=== PATIENT | male | born 1965 | race Caucasian/White ===

== ENCOUNTER 2020-12-20 13:45 | Emergency (ER) | payer OTHER ==
[~2020-12-20 13:45] MED LIST: ALBUTEROL2.5 MG/3 M INH; AMOXICILLIN875 MG PO; AUGMENTIN 875-1 EACH PO; BACTROBAN OINT22 GM EXT; HABITROL 21 MG P1 EA TOP; IPRAT-ALBUT 0.5-3 ML INH; LEVAQUIN750 MG PO; MEDROL DOSEPAK 24 MG PO; MIRALAX 119 GR119 GM GT; NEBULIZER UNIT; OMNICEF 300 MG300 MG PO; ONDANSETRON ODT4 MG PO; PREDNISONE20 MG PO; TESSALON PERLE100 MG PO; VENTOLIN HFA 66.7 GM INH; VIBRAMYCIN100 MG PO; ZITHROMAX250 MG PO
[2020-12-20 16:23] LABS: HEMOGLOBIN 16.4 gm/dl (14.0-17.5); RED BLOOD COUNT 5.15 M/UL (4.20-5.50); WHITE BLOOD COUNT 9.9 K/UL (4.5-11.0)
[2020-12-20 16:49] LABS: BUN/CREATININE RATIO 14 (0-10)
[2020-12-20] MEDS ORDERED: OMNICEF 300 MG300 MG PO (18:36)
[2020-12-20] MEDS ORDERED: AZITHROMYCIN250 MG PO (18:36)
[2020-12-20] MEDS ORDERED: MEDROL DOSEPAK 24 MG PO (18:36)
[2020-12-20] MEDS ORDERED: IPRAT-ALBUT 0.5-3 ML INH (18:36)
== END 2020-12-20 19:10 | disposition home or self-care (01) ==
LOC: ER1 13:45
PROVIDERS: Physician Assistant Medical
DX: J44.1 Chronic obstructive pulmonary disease with (acute) exacerbation (principal); J20.9 Acute bronchitis, unspecified; J44.0 Chronic obstructive pulmonary disease with (acute) lower respiratory infection; Z85.118 Personal history of other malignant neoplasm of bronchus and lung; Z20.822 Contact with and (suspected) exposure to COVID-19
CPT/HCPCS: 0240U; 36600; 71045; 80053; 82550; 82553; 82803; 83605; 83874; 83880; 84484; 85025; 87040; 93005; 94640; 94664; 96365; 96375; 99285; J0696; J2930

== ENCOUNTER 2020-12-28 05:25 | Emergency (ER) | payer OTHER ==
[~2020-12-28 05:25] MED LIST changes: +AZITHROMYCIN250 MG PO
[2020-12-28 06:48] LABS: HEMOGLOBIN 15.8 gm/dl (14.0-17.5); RED BLOOD COUNT 5.15 M/UL (4.20-5.50); WHITE BLOOD COUNT 12.6 K/UL (4.5-11.0)
[2020-12-28 07:28] LABS: BUN/CREATININE RATIO 13 (0-10)
[2020-12-28] MEDS ORDERED: ZITHROMAX250 MG PO (08:55)
[2020-12-28] MEDS ORDERED: MEDROL4 MG PO (08:55)
[2020-12-28] MEDS ORDERED: VENTOLIN HFA 66.7 GM INH (09:06)
== END 2020-12-28 10:26 | disposition home or self-care (01) ==
LOC: ER1 05:25
PROVIDERS: Emergency Medicine
DX: J45.901 Unspecified asthma with (acute) exacerbation (principal); Z85.118 Personal history of other malignant neoplasm of bronchus and lung; Z20.822 Contact with and (suspected) exposure to COVID-19
CPT/HCPCS: 0240U; 71045; 80053; 82550; 82553; 83605; 84484; 85025; 85379; 85610; 85730; 87040; 93005; 94640; 94664; 96374; 99285; J2930

== ENCOUNTER 2020-12-31 04:21 | Inpatient (IN) | payer OTHER ==
[~2020-12-31] VITALS: Ht 170.2 cm; Wt 74.8 kg
[~2020-12-31 04:21] MED LIST changes: +MEDROL4 MG PO
[2020-12-31 04:45] LABS: HEMOGLOBIN 16.4 gm/dl (14.0-17.5); RED BLOOD COUNT 5.09 M/UL (4.20-5.50)
[2020-12-31 04:53] LABS: WHITE BLOOD COUNT 20.5 K/UL (4.5-11.0)
[2020-12-31 05:06] LABS: BUN/CREATININE RATIO 20 (0-10)
[2020-12-31] MEDS ORDERED: IPRAT-ALBUT 0.5-3 ML INH (09:18)
[2020-12-31] MEDS ORDERED: MEDROL DOSEPAK 24 MG PO (09:19)
[2020-12-31] MEDS ORDERED: SYMBICORT 16010.2 GM INH (09:19)
[2020-12-31] MEDS ORDERED: AZITHROMYCIN250 MG PO (09:19)
[2020-12-31] MEDS ORDERED: VITAMIN C500 M6 PO (09:21)
--- NOTE | 2021-01-01 10:23 | NUR ---
PATIENTS ROOM SAT IS 88% WITHOUT O2 NASAL CANNULA ON.
[2021-01-02 02:20] LABS: HEMOGLOBIN 15.3 gm/dl (14.0-17.5); RED BLOOD COUNT 4.75 M/UL (4.20-5.50); WHITE BLOOD COUNT 29.4 K/UL (4.5-11.0)
[2021-01-02 02:47] LABS: BUN/CREATININE RATIO 38 (0-10)
[2021-01-02] MEDS ORDERED: IPRAT-ALBUT 0.5-3 ML INH (13:49)
[2021-01-02] MEDS ORDERED: THERAGRAN M TAB1 EA PO (13:49)
[2021-01-02] MEDS ORDERED: VITAMIN D350 MC3 PO (13:49)
[2021-01-02] MEDS ORDERED: SYMBICORT 16010.2 GM INH (13:49)
[2021-01-02] MEDS ORDERED: TOPROL XL25 MG PO (13:49)
[2021-01-02] MEDS ORDERED: KLONOPIN0.5 MG PO (13:49)
[2021-01-02] MEDS ORDERED: AMOX TR-K CLV1 EAC4 PO (13:49)
== END 2021-01-02 19:30 | disposition home health service (06) | DRG 871 ==
LOC: ER1 04:21 → CDU 06:22 → PROG CARE 06:22 → CDU 06:22 → PROG CARE 11:00
PROVIDERS: Emergency Medicine; Internal Medicine Infectious Disease; ADMIT Internal Medicine
DX: A41.9 Sepsis, unspecified organism (principal); J18.9 Pneumonia, unspecified organism; E43 Unspecified severe protein-calorie malnutrition; J96.21 Acute and chronic respiratory failure with hypoxia; J44.0 Chronic obstructive pulmonary disease with (acute) lower respiratory infection; C34.92 Malignant neoplasm of unspecified part of left bronchus or lung; C77.9 Secondary and unspecified malignant neoplasm of lymph node, unspecified; J44.1 Chronic obstructive pulmonary disease with (acute) exacerbation; Z20.822 Contact with and (suspected) exposure to COVID-19; F17.210 Nicotine dependence, cigarettes, uncomplicated; R00.0 Tachycardia, unspecified; F41.1 Generalized anxiety disorder; Z82.49 Family history of ischemic heart disease and other diseases of the circulatory system; Z90.2 Acquired absence of lung [part of]; Z68.25 Body mass index [BMI] 25.0-25.9, adult; Z82.5 Family history of asthma and other chronic lower respiratory diseases; Z80.0 Family history of malignant neoplasm of digestive organs; Z79.899 Other long term (current) drug therapy
CPT/HCPCS: 0240U; 36415; 36600; 71045; 80053; 82550; 82553; 82803; 83605; 83690; 83735; 83874; 84100; 84484; 85025; 85610; 85730; 86140; 93005; 94640; 94664; 94760; 96365; 96372; 96375; 96376; 97161; 99285; C9113; J0696; J1650; J1956; J2920; J2930; Q9967

== ENCOUNTER 2021-01-11 12:20 | Inpatient (IN) | payer OTHER ==
[~2021-01-11] VITALS: Ht 170.2 cm; Wt 74.8 kg
[~2021-01-11 12:20] MED LIST changes: +AMOX TR-K CLV1 EAC4 PO; +KLONOPIN0.5 MG PO; +SYMBICORT 16010.2 GM INH; +THERAGRAN M TAB1 EA PO; +TOPROL XL25 MG PO; +VITAMIN C500 M6 PO; +VITAMIN D350 MC3 PO
[2021-01-11 13:26] LABS: HEMOGLOBIN 16.2 gm/dl (14.0-17.5); RED BLOOD COUNT 5.05 M/UL (4.20-5.50); WHITE BLOOD COUNT 20.1 K/UL (4.5-11.0)
[2021-01-11 13:47] LABS: BUN/CREATININE RATIO 16 (0-10)
[2021-01-12 06:21] LABS: HEMOGLOBIN 16.2 gm/dl (14.0-17.5); RED BLOOD COUNT 5.08 M/UL (4.20-5.50); WHITE BLOOD COUNT 20.3 K/UL (4.5-11.0)
[2021-01-12 06:38] LABS: BUN/CREATININE RATIO 22 (0-10)
[2021-01-13 05:54] LABS: HEMOGLOBIN 14.7 gm/dl (14.0-17.5); RED BLOOD COUNT 4.62 M/UL (4.20-5.50)
[2021-01-13 06:24] LABS: WHITE BLOOD COUNT 33.3 K/UL (4.5-11.0)
[2021-01-13 06:25] LABS: BUN/CREATININE RATIO 27 (0-10)
--- NOTE | 2021-01-13 06:31 | NUR ---
NOTIFIED DR GLOVER OF CRITICAL LAB. WBC COUNT 33.3, RECIEVED NO NEW ORDERS. WILL CONTINUE TO MONITOR.
--- NOTE | 2021-01-14 17:40 | NUR ---
01/14/21 1630 REFUSES TO WEAR SCUD'S
[2021-01-15 03:04] LABS: HEMOGLOBIN 14.3 gm/dl (14.0-17.5); RED BLOOD COUNT 4.47 M/UL (4.20-5.50)
[2021-01-15 03:08] LABS: WHITE BLOOD COUNT 16.2 K/UL (4.5-11.0)
[2021-01-15 03:42] LABS: BUN/CREATININE RATIO 34 (0-10)
--- NOTE | 2021-01-15 18:41 | NUR ---
BEDSIDE SHIFT REPORT DONE AT THIS TIME. PATIENT IN STABLE CONDITION.
[2021-01-16 04:21] LABS: HEMOGLOBIN 14.8 gm/dl (14.0-17.5); RED BLOOD COUNT 4.68 M/UL (4.20-5.50); WHITE BLOOD COUNT 18.3 K/UL (4.5-11.0)
[2021-01-16 04:43] LABS: BUN/CREATININE RATIO 34 (0-10)
[2021-01-16] MEDS ORDERED: MEDROL DOSEPAK 24 MG PO (11:13)
[2021-01-16] MEDS ORDERED: SPIRIVA HANDIH18 MCG INH (11:13)
[2021-01-16] MEDS ORDERED: LEVOFLOXACIN750 MG PO (11:18)
--- NOTE | 2021-01-16 18:24 | NUR ---
THIS NURSE ASSISTED TRANSPORT TEAM WITH PATIENT TRANSPORT UPON DISCHARGE. UPON TRANSFER FROM HOSPITAL OXYGEN TANK TO PATIENT'S HOME SUPPLY, PATIENT PANICKED SCREAMING "I AM NOT GETTING AIR!" PATIENT ALSO BEGAN TO CURSE, AND BECOME VERY TALKATIVE AND PANICKING. PATIENT HAD PORTABLE O2 SAT MONITOR ON HIS FINGER, IN WHICH OXYGEN SATURATIONS DID DROP DURING THIS EPISODE. REASSURED PATIENT, CALMED PATIENT, AND ENCOURAGED TO TAKE DEEP EVEN BREATHS. WITHIN 30 SECONDS, PATIENT'S OXYGEN SATURATION RETURNED TO NORMAL RANGE, 92-93% ON 4LPM/NC. DISCUSSED WITH PATIENT IF HE WOULD LIKE FOR PHYSICIAN TO BE CALLED OR IF HE WOULD LIKE TO COME BACK IN TO THE HOSPITAL FOR REASSESSMENT. PATIENT REFUSED. NOTIFIED DR. HERNANDEZ.
== END 2021-01-16 18:13 | disposition home or self-care (01) | DRG 871 ==
LOC: ER1 12:20 → CDU 20:14 → MED SURG 4 22:40
PROVIDERS: Internal Medicine; Physician Assistant Medical; ADMIT Internal Medicine
DX: A41.9 Sepsis, unspecified organism (principal); J96.21 Acute and chronic respiratory failure with hypoxia; J18.9 Pneumonia, unspecified organism; J44.1 Chronic obstructive pulmonary disease with (acute) exacerbation; J44.0 Chronic obstructive pulmonary disease with (acute) lower respiratory infection; C34.32 Malignant neoplasm of lower lobe, left bronchus or lung; C77.1 Secondary and unspecified malignant neoplasm of intrathoracic lymph nodes; F17.200 Nicotine dependence, unspecified, uncomplicated; F41.1 Generalized anxiety disorder; Z20.822 Contact with and (suspected) exposure to COVID-19; Z51.5 Encounter for palliative care; Z99.81 Dependence on supplemental oxygen; Z80.1 Family history of malignant neoplasm of trachea, bronchus and lung
CPT/HCPCS: 36415; 36600; 71045; 71046; 80048; 80053; 82550; 82553; 82803; 83605; 83874; 83880; 84484; 85007; 85025; 85027; 86140; 87040; 93005; 94640; 94664; 94760; 96365; 96375; 97116-GP-CQ; 97161; 99285; J0456; J0696; J1650; J2185; J2920; J2930; J3475; J7030; Q9967; U0002

== ENCOUNTER 2021-01-22 22:59 | Emergency (ER) | payer OTHER ==
[~2021-01-22 22:59] MED LIST changes: +LEVOFLOXACIN750 MG PO; +SPIRIVA HANDIH18 MCG INH
[2021-01-23 00:16] LABS: RED BLOOD COUNT 5.3 M/UL (4.20-5.50); WHITE BLOOD COUNT 14.9 K/UL (4.5-11.0)
[2021-01-23 00:17] LABS: HEMOGLOBIN 17.1 gm/dl (14.0-17.5)
[2021-01-23 00:32] LABS: BUN/CREATININE RATIO 17 (0-10)
[2021-01-23] MEDS ORDERED: MIRALAX17 GM PO (02:34)
[2021-01-23] MEDS ORDERED: PREDNISONE 10 M10 MG PO (15:43)
== END 2021-01-23 02:50 | disposition home or self-care (01) ==
LOC: ER1 22:59
PROVIDERS: Emergency Medicine
DX: K56.41 Fecal impaction (principal); R31.9 Hematuria, unspecified; J44.9 Chronic obstructive pulmonary disease, unspecified; Z85.118 Personal history of other malignant neoplasm of bronchus and lung; F17.200 Nicotine dependence, unspecified, uncomplicated
CPT/HCPCS: 72128; 72131; 80053; 81001; 83690; 83735; 84100; 85025; 85610; 85730; 87086; 93005; 99284; Q9967

== ENCOUNTER 2021-01-23 12:29 | Emergency (ER) | payer OTHER ==
[~2021-01-23 12:29] MED LIST changes: +MIRALAX17 GM PO
[2021-01-23 15:00] LABS: HEMOGLOBIN 16.9 gm/dl (14.0-17.5); RED BLOOD COUNT 5.25 M/UL (4.20-5.50)
[2021-01-23 15:21] LABS: WHITE BLOOD COUNT 18.7 K/UL (4.5-11.0)
[2021-01-23 15:27] LABS: BUN/CREATININE RATIO 20 (0-10)
[2021-01-23] MEDS ORDERED: PREDNISONE 10 M10 MG PO (15:43)
== END 2021-01-23 16:22 | disposition home or self-care (01) ==
LOC: ER1 12:29
PROVIDERS: Emergency Medicine
DX: J44.1 Chronic obstructive pulmonary disease with (acute) exacerbation (principal); Z85.118 Personal history of other malignant neoplasm of bronchus and lung
CPT/HCPCS: 36600; 71046; 80053; 82550; 82553; 82803; 83874; 83880; 84484; 85025; 96374; 99285

== ENCOUNTER 2021-01-28 23:47 | Emergency (ER) | payer OTHER ==
[~2021-01-28 23:47] MED LIST changes: +PREDNISONE 10 M10 MG PO
[2021-01-29 00:16] LABS: RED BLOOD COUNT 4.64 M/UL (4.20-5.50); WHITE BLOOD COUNT 18.7 K/UL (4.5-11.0)
[2021-01-29 00:17] LABS: HEMOGLOBIN 14.8 gm/dl (14.0-17.5)
[2021-01-29 00:30] LABS: BUN/CREATININE RATIO 18 (0-10)
[2021-01-29] MEDS ORDERED: ATIVAN0.5 MG PO (04:00)
== END 2021-01-29 05:55 | disposition home or self-care (01) ==
LOC: ER1 23:47
PROVIDERS: Family Medicine
DX: J44.9 Chronic obstructive pulmonary disease, unspecified (principal); Z87.891 Personal history of nicotine dependence
CPT/HCPCS: 71045; 80053; 82550; 82553; 83605; 83880; 84484; 85025; 93005; 94640; 94664; 96374; 96375; 99285; J2060; J2930; J7030

== ENCOUNTER 2021-01-29 13:58 | Inpatient (IN) | payer OTHER ==
[~2021-01-29] VITALS: Ht 165.1 cm; Wt 66.2 kg
[~2021-01-29 13:58] MED LIST changes: +ATIVAN0.5 MG PO
[2021-01-29 15:03] LABS: HEMOGLOBIN 15.3 gm/dl (14.0-17.5); RED BLOOD COUNT 4.79 M/UL (4.20-5.50); WHITE BLOOD COUNT 20.5 K/UL (4.5-11.0)
[2021-01-29 15:27] LABS: BUN/CREATININE RATIO 24 (0-10)
[2021-01-30 04:34] LABS: WHITE BLOOD COUNT 24.5 K/UL (4.5-11.0)
[2021-01-30 04:38] LABS: HEMOGLOBIN 12.6 gm/dl (14.0-17.5); RED BLOOD COUNT 4.02 M/UL (4.20-5.50)
[2021-01-30 04:54] LABS: BUN/CREATININE RATIO 22 (0-10)
[2021-01-30 08:38] LABS: BORDETELLA PARAPERTUSSIS Not Detected (Not Detectd); BORDETELLA PERTUSSIS Not Detected (Not Detectd); CHLAMYDIA PNEUMONIAE Not Detected (Not Detectd); CORONAVIRUS HKU1 Not Detected (Not Detectd); CORONAVIRUS NL63 Not Detected (Not Detectd); CORONAVIRUS OC43 Not Detected (Not Detectd); CORONOAVIRUS 229E Not Detected (Not Detectd); HUMAN METAPNEUMOVIRUS Not Detected (Not Detectd); HUMAN RHINOVIRUS/ENTEROVIRUS Not Detected (Not Detectd); INFLUENZA A Not Detected (Not Detectd); INFLUENZA B Not Detected (Not Detectd); MYCOPLASMA PNEUMONIAE Not Detected (Not Detectd); PARAINFLUENZA VIRUS 1 Not Detected (Not Detectd); PARAINFLUENZA VIRUS 2 Not Detected (Not Detectd); PARAINFLUENZA VIRUS 3 Not Detected (Not Detectd); PARAINFLUENZA VIRUS 4 Not Detected (Not Detectd); RESPIRATORY SYNCYTIAL VIRUS Not Detected (Not Detectd)
[2021-01-30 09:54] LABS: SARS-CoV-2 NOT DETECTED (Not Detectd)
[2021-01-31 05:13] LABS: HEMOGLOBIN 12.4 gm/dl (14.0-17.5); RED BLOOD COUNT 3.95 M/UL (4.20-5.50); WHITE BLOOD COUNT 23.9 K/UL (4.5-11.0)
[2021-01-31 05:36] LABS: BUN/CREATININE RATIO 26 (0-10)
[2021-02-01 04:26] LABS: HEMOGLOBIN 12.7 gm/dl (14.0-17.5); RED BLOOD COUNT 4.04 M/UL (4.20-5.50)
[2021-02-01 04:45] LABS: WHITE BLOOD COUNT 30.6 K/UL (4.5-11.0)
[2021-02-01 04:56] LABS: BUN/CREATININE RATIO 31 (0-10)
--- NOTE | 2021-02-01 06:25 | NUR ---
CRITICAL WBC WAS REPORTED TO DR BAEZ AT 0450 NO NEW ORDERS WERE GIVEN
[2021-02-02 04:24] LABS: RED BLOOD COUNT 3.86 M/UL (4.20-5.50)
[2021-02-02 04:47] LABS: BUN/CREATININE RATIO 35 (0-10)
[2021-02-03 05:14] LABS: HEMOGLOBIN 11.1 gm/dl (14.0-17.5); RED BLOOD COUNT 3.56 M/UL (4.20-5.50)
[2021-02-03 05:18] LABS: WHITE BLOOD COUNT 8.3 K/UL (4.5-11.0)
[2021-02-03 05:32] LABS: BUN/CREATININE RATIO 53 (0-10)
[2021-02-04 05:31] LABS: HEMOGLOBIN 12.4 gm/dl (14.0-17.5); WHITE BLOOD COUNT 8.5 K/UL (4.5-11.0)
[2021-02-04 05:50] LABS: RED BLOOD COUNT 3.97 M/UL (4.20-5.50)
[2021-02-04 05:58] LABS: BUN/CREATININE RATIO 60 (0-10)
[2021-02-05 04:14] LABS: HEMOGLOBIN 13.2 gm/dl (14.0-17.5); RED BLOOD COUNT 4.16 M/UL (4.20-5.50); WHITE BLOOD COUNT 8.8 K/UL (4.5-11.0)
[2021-02-05 04:29] LABS: BUN/CREATININE RATIO 54 (0-10)
[2021-02-07] MEDS ORDERED: ROXANOL SOLN20 MG/ML PO (11:49)
[2021-02-07] MEDS ORDERED: DURAGESIC1 EACH TD (11:50)
[2021-02-07] MEDS ORDERED: ATIVAN1 MG PO (11:51)
== END 2021-02-07 21:50 | DRG 870 ==
LOC: ER1 13:58 → CDU 17:17 → MED SURG 4 17:17 → CCU 17:17 → MED SURG 4 19:23 → PROG CARE 01-30 13:08 → CCU 01-30 13:38 → M/S 02-06 15:14
PROVIDERS: Internal Medicine Pulmonary Disease; Physician Assistant Medical; ADMIT Internal Medicine
PROC: 0BH17EZ Insertion of Endotracheal Airway into Trachea, Via Natural or Artificial Opening (ICD-10-PCS; 2021-01-31)
PROC: 0B9J8ZX Drainage of Left Lower Lung Lobe, Via Natural or Artificial Opening Endoscopic, Diagnostic (ICD-10-PCS; 2021-01-31)
PROC: 0B9G8ZX Drainage of Left Upper Lung Lobe, Via Natural or Artificial Opening Endoscopic, Diagnostic (ICD-10-PCS; 2021-01-31)
PROC: 0BDB8ZX Extraction of Left Lower Lobe Bronchus, Via Natural or Artificial Opening Endoscopic, Diagnostic (ICD-10-PCS; 2021-01-31)
PROC: 5A1955Z Respiratory Ventilation, Greater than 96 Consecutive Hours (ICD-10-PCS; principal; 2021-01-31 12:02)
DX: A41.9 Sepsis, unspecified organism (principal); R65.21 Severe sepsis with septic shock; J96.01 Acute respiratory failure with hypoxia; J96.02 Acute respiratory failure with hypercapnia; J18.9 Pneumonia, unspecified organism; C77.9 Secondary and unspecified malignant neoplasm of lymph node, unspecified; J94.8 Other specified pleural conditions; C34.91 Malignant neoplasm of unspecified part of right bronchus or lung; C34.92 Malignant neoplasm of unspecified part of left bronchus or lung; F41.9 Anxiety disorder, unspecified; D72.828 Other elevated white blood cell count; T38.0X5A Adverse effect of glucocorticoids and synthetic analogues, initial encounter; R00.0 Tachycardia, unspecified; F32.9 Major depressive disorder, single episode, unspecified; I95.9 Hypotension, unspecified; Y92.89 Other specified places as the place of occurrence of the external cause; Z85.118 Personal history of other malignant neoplasm of bronchus and lung; Z20.822 Contact with and (suspected) exposure to COVID-19
CPT/HCPCS: ECHO; 31500; 36415; 36600; 71045; 80048; 80053; 80202; 82550; 82553; 82803; 83605; 83735; 83874; 83880; 84484; 85025; 85027; 87040; 87070; 87205; 87633; 93005; 93306; 94003; 94640; 94660; 94664; 94760; 96365; 96374; 96375; 99285; C9113; J0330; J0692; J1120; J1650; J1940; J2020; J2060; J2185; J2250; J2270; J2370; J2704; J2765; J2920; J2930; J3370; J7030; J7040; J7070; U0002